=== PATIENT | male | born 1980 | race Caucasian/White ===

== ENCOUNTER 2018-09-22 16:49 | Emergency (ER) | payer OTHER ==
[2018-09-22 17:18] VITALS: BP 135/83
[2018-09-22] MEDS ORDERED: TETRACAINE HCL 0.5% OPH SOLN 4 ML ONE (17:23)
[2018-09-22] MEDS ORDERED: TETRACAINE HCL 0.5% OPH SOLN 4 ML OS ONE (17:24)
[2018-09-22] MEDS ORDERED: TOBRAMYCIN SULFATE/DEXAMETH OPH OINTMENT 3.5 GM OD ONE (17:32)
--- NOTE | 2018-09-22 17:36 | ER Document Report ---
ED Foreign Body - General Chief Complaint: Foreign Body in Eye Stated Complaint: PIECE OF WOOD IN LEFT EYE Time Seen by Provider: 09/22/18 17:24 Mode of Arrival: Ambulatory Information source: Patient Notes: History of Present Illness Time:[ ] Chief Complaint: [eye complaint ] [38 years old male while working 1 of the sawdust went into his left eye and having pain and irritation happened just before arrival. ] History obtained from [patient] Symptoms began: [Just prior to arrival ] Onset: [ Sudden] Timing: [ Continuous] Quality: [Sharp moderate ] Intensity: [ ] Location: [ Left eye] Radiation: [none] Migration: [none] Aggravating factors: [none] Relieving factors: [none] Review of Systems: All other systems negative as reviewed. CONSTITUTIONAL No Fever. EYES As above ENT No sore throat CARDIOVASCULAR No chest pain. RESPIRATORY No SOB. GI No abdominal pain, no vomiting, no diarrhea. GENITOURINARY No dysuria. SKIN No rash. NEUROLOGIC No headache. MUSCULOSKELETAL No back pain. Physical Exam CONSTITUTIONAL Vital signs reviewed, Patient has normal respiratory rate, Well appearing, Patient appears comfortable, normal stature. HEAD Atraumatic, Normocephalic. EYES [ ][Pupils are ~ 3 mm bilaterally.] [Pupils are equal, round, and reactive to light. ]Extraocular movements are normal bilaterally. [No] eye redness. [No] eye lesions. [No] eye discharge. [No] subconjunctival hemorrhage. [No] icterus. [Normal visual mitchell. ] Eyelids everted, [no] lesions , [no] foreign material noted. Flourescein staining - [no] uptake to suggest corneal defect. Visual acuity charted by RN. ENT Ears normal to inspection, Nose examination normal, Mouth examination normal. NECK No jugular venous distention. RESPIRATORY CHEST Breath sounds normal, No respiratory distress. CARDIOVASCULAR RRR, No murmurs, Normal S1 S2, No rub, No gallop. ABDOMEN Abdomen is nontender, No masses, Bowel sounds normal, No distension, No peritoneal signs. BACK Inspection normal. UPPER EXTREMITY Inspection normal. LOWER EXTREMITY Inspection normal. NEURO No facial droop, speech normal, motor function normal. SKIN Skin is warm, dry, normal color. PSYCHIATRIC Normal affect. TRAVEL OUTSIDE OF THE [place] IN LAST 30 DAYS: No - Related Data Allergies/Adverse Reactions: No Known Allergies Allergy (Verified 09/22/18 17:18) Past Medical History - Social History Smoking Status: Current Every Day Smoker Frequency of alcohol use: Social Drug Abuse: None Lives with: Family Family History: Reviewed & Not Pertinent Patient has suicidal ideation: No Patient has homicidal ideation: No Renal/ Medical History: Denies: Hx Peritoneal Dialysis Review of Systems - Review of Systems Notes: Dictated Physical Exam - Vital signs Vitals: Temp Pulse Resp BP Pulse Ox 98.2 F 72 16 135/83 H 99 09/22/18 17:16 09/22/18 17:16 09/22/18 17:16 09/22/18 17:16 09/22/18 17:16 - Notes Notes: Dictated Course - Vital Signs Vital signs: Temp Pulse Resp BP Pulse Ox 98.2 F 72 16 135/83 H 99 09/22/18 17:16 09/22/18 17:16 09/22/18 17:16 09/22/18 17:16 09/22/18 17:16 Procedures - Eye Procedure Left Time completed: 17:30 Eye Irrigated w/ Saline (ccs): 20 Foreign body removal: Left Alcaine Drops Administered: Yes Acular drops administered: Left Fluorescein applied: Left Antibiotic Oinment/Drps Admin: Left eye Slit lamp used: No Discharge - Discharge Clinical Impression: Left eye foreign body conjunctivitis Sinusitis Qualifiers: Sinusitis location: other Chronicity: unspecified Qualified Code(s): J32.9 - Chronic sinusitis, unspecified Condition: Fair Disposition: HOME, SELF-CARE Instructions: Conjunctivitis ([facility]) Prescriptions: Azithromycin [Zithromax 250 mg Tablet] 250 mg PO ASDIR PRN #6 tablet PRN Reason:
== END 2018-09-22 17:53 | disposition home or self-care (01) ==
LOC: ER 16:49
DX: T15.92XA Foreign body on external eye, part unspecified, left eye, initial encounter (principal); H10.89 Other conjunctivitis; X58.XXXA Exposure to other specified factors, initial encounter; Y93.89 Activity, other specified; Y99.0 Civilian activity done for income or pay; J32.9 Chronic sinusitis, unspecified; F17.200 Nicotine dependence, unspecified, uncomplicated
CPT/HCPCS: 99283; J3490 ×2